=== PATIENT | male | born 1985 | race African-American/Black ===

== ENCOUNTER 2018-07-22 17:46 | Emergency (ER) | payer OTHER ==
[~2018-07-22] VITALS: Ht 177.8 cm; Wt 79.4 kg
[~2018-07-22 17:46] MED LIST: IBUPROFEN 600600 M1 PO; NOHOMEMEDICATIONS
[2018-07-22 18:58] LABS: ABSOLUTE NEUTROPHILS 6.2 thou/uL (1.4-8.2); BASOPHILS 0.1 % (0.0-2.0); EOSINOPHILS 0.1 % (0.0-3.0); LYMPHOCYTES 3.7 % (24.0-44.0); MCH 27.9 pg (26.0-34.0); MCHC 32.6 g/dL (28.0-37.0); MCV 85.5 fL (80.0-100.0); MONOCYTES 5.4 % (1.0-8.0); PLATELET COUNT 274 thou/uL (150-400); POLYS 90.7 % (36.0-66.0); RBC 5.38 mil/uL (4.50-6.00); RDW 12.5 % (10.5-14.5); WBC 6.8 thou/uL (4.0-11.0)
[2018-07-22 19:07] LABS: CALCIUM 9.4 mg/dL (8.5-10.1); CREATININE 1.5 mg/dL (0.7-1.3); POTASSIUM 4.2 mmol/L (3.5-5.1)
[2018-07-22 19:14] LABS: ALBUMIN 3.9 g/dL (3.4-5.0); TOTAL BILIRUBIN 1.4 mg/dL (<0.1-1.0)
[2018-07-22] MEDS ORDERED: ZOFRAN ODT4 MG PO (19:47)
[2018-07-22 20:01] VITALS: BP 112/63
== END 2018-07-22 20:00 | disposition home or self-care (01) ==
LOC: ER 17:46
PROVIDERS: Physician Assistant
DX: R19.7 Diarrhea, unspecified (principal); R50.9 Fever, unspecified; R11.0 Nausea